=== PATIENT | male | born 1980 | race Caucasian/White ===

== ENCOUNTER 2020-07-20 14:54 | Emergency (ER) | payer SELFPAY ==
[~2020-07-20] VITALS: Ht 177.8 cm; Wt 82.9 kg
[2020-07-20 14:55] VITALS: BP 139/74
[2020-07-20 16:07] LABS: BACTERIA,URINE 0 /HPF (0-FEW); BILIRUBIN,URINE NEG (NEG); CLARITY,URINE CLEAR; COLOR,URINE AMBER; GLUCOSE,URINE NEG (NEG); NITRITE,URINE NEG (NEG); SQUAMOUS EPITHELIAL CELL,UR FEW /LPF; UROBILINOGEN,URINE 0.2 mg/dL (0.2 mg/dL); WBC,URINE OCC /HPF (0-4)
--- NOTE | 2020-07-20 16:19 | RAD ---
EXAM: Abdomen and pelvis CT without intravenous contrast. HISTORY: Flank pain. TECHNIQUE: Computed tomographic images of the abdomen and pelvis were obtained without contrast. Multiplanar reformatting was performed. *One or more of the following individualized dose reduction techniques were utilized for this examination: 1. Automated exposure control. 2. Adjustment of the mA and/or kV according to patient size. 3. Use of iterative reconstruction technique. COMPARISON: None. FINDINGS: Evaluation of the lower thorax is unremarkable. No hepatic lesion is seen. The gallbladder, pancreas, spleen and adrenal glands are unremarkable. There are nonobstructing bilateral renal stones, the largest of which measures 3 mm within the lower pole the right kidney. No obstructing renal stone is seen. No solid or cystic renal lesion is seen on this noncontrast exam. There is no appendicitis. There is no bowel obstruction. There is distal colonic diverticulosis. There is no diverticulitis. There is no lymphadenopathy. The aorta is normal in caliber. There is multilevel degenerative change involving the lumbar spine. This includes a broad-based posterior central disc protrusion superimposed on a disc bulge and endplate osteophytosis L2-L3. This results in moderate central canal stenosis. There are lesser degrees of central canal stenosis at the remainder of the lumbar levels. There is foraminal stenosis at multiple levels. IMPRESSION: 1. Bilateral nephrolithiasis. There is no evidence of hydronephrosis. 2. Few distal colonic diverticula. There is no diverticulitis. 3. Multilevel degenerative change involving the lumbar spine. Electronically signed by: Anyi Bustos MD (07/20/2020 4:16 PM) [facility], [place]
--- NOTE | 2020-07-20 16:31 | PHYS DOC ---
Past History Past Medical History: Kidney Stones Past Surgical History: No Surgical History Alcohol Use: Occasionally General Adult EDM: Chief Complaint: FLANK PAIN HPI: HPI: 40-year-old male presents with intermittent left flank pain for the last 2 weeks. He has had a dull ache most of the time with periods of sudden sharp intense pain. He had several of those episodes last night. He decided he should come in for evaluation. The patient just moved here from [place]. He is working on getting his insurance changed and does not currently have a primary physician. Patient has no history of kidney stones. He has had episodes like this in the past several years ago that eventually this went away. Patient denies fever or chills. He has had no real change in his urine habits. Review of Systems: Review of Systems: Constitutional: Denies fever or chills Eyes: Denies change in visual acuity HENT: Denies nasal congestion or sore throat Respiratory: Denies cough or shortness of breath Cardiovascular: Denies chest pain or edema GI: Denies abdominal pain, nausea, vomiting, bloody stools or diarrhea : Denies dysuria Musculoskeletal: Left flank pain Integument: Denies rash Neurologic: Denies headache, focal weakness or sensory changes Endocrine: Denies polyuria or polydipsia Lymphatic: Denies swollen glands Psychiatric: Denies depression or anxiety Heart Score: Risk Factors: Risk Factors: DM, Current or recent (<one month) smoker, HTN, HLP, family history of CAD, obesity. Risk Scores: Score 0 - 3: 2.5% MACE over next 6 weeks - Discharge Home Score 4 - 6: 20.3% MACE over next 6 weeks - Admit for Clinical Observation Score 7 - 10: 72.7% MACE over next 6 weeks - Early Invasive Strategies Allergies: Allergies: Allergies Coded Allergies Type Severity Reaction Last Updated Verified No Known Drug Allergies 07/20/20 No Physical Exam: PE: Constitutional: Well developed, well nourished, no acute distress, non-toxic appearance. [] HENT: Normocephalic, atraumatic, bilateral external ears normal, oropharynx moist, no oral exudates, nose normal. [] Eyes: PERRLA, EOMI, conjunctiva normal, no discharge. [] Neck: Normal range of motion, no tenderness, supple, no stridor. [] Cardiovascular: Heart rate regular rhythm, no murmur [] Lungs & Thorax: Bilateral breath sounds clear to auscultation [] Abdomen: Bowel sounds normal, soft, no tenderness, no masses, no pulsatile masses. [] Skin: Warm, dry, no erythema, no rash. [] Back: No tenderness, no CVA tenderness. [] Extremities: No tenderness, no cyanosis, no clubbing, ROM intact, no edema. [] Neurologic: Alert and oriented X 3, normal motor function, normal sensory function, no focal deficits noted. [] Psychologic: Affect normal, judgement normal, mood normal. [] Current Patient Data: Labs: Laboratory Tests Test 07/20/20 15:05 Urine Collection Type Unknown Urine Color Jennifer Urine Clarity Clear Urine pH 6.0 Urine Specific [place] 1.025 Urine Protein Neg (NEG-TRACE) Urine Glucose (UA) Neg mg/dL (NEG) Urine Ketones (Stick) Trace mg/dL (NEG) Urine Blood Small (NEG) Urine Nitrite Neg (NEG) Urine Bilirubin Neg (NEG) Urine Urobilinogen Dipstick 0.2 mg/dL (0.2 mg/dL) Urine Leukocyte Esterase Neg (NEG) Urine RBC 11-20 /HPF (0-2) Urine WBC Occ /HPF (0-4) Urine Squamous Epithelial Cells Few /LPF Urine Bacteria 0 /HPF (0-FEW) Vital Signs: Vital Signs Date Time Temp Pulse Resp B/P (MAP) Pulse Ox O2 Delivery O2 Flow Rate FiO2 07/20/20 14:55 98.5 70 20 139/74 (95) 97 07/20/20 14:54 Room Air EKG: EKG: [] Radiology/Procedures: Radiology/Procedures: [] Impressions: EXAM: Abdomen and pelvis CT without intravenous contrast. HISTORY: Flank pain. TECHNIQUE: Computed tomographic images of the abdomen and pelvis were obtained without contrast. Multiplanar reformatting was performed. *One or more of the following individualized dose reduction techniques were utilized for this examination: 1. Automated exposure control. 2. Adjustment of the mA and/or kV according to patient size. 3. Use of iterative reconstruction technique. COMPARISON: None. FINDINGS: Evaluation of the lower thorax is unremarkable. No hepatic lesion is seen. The gallbladder, pancreas, spleen and adrenal glands are unremarkable. There are nonobstructing bilateral renal stones, the largest of which measures 3 mm within the lower pole the right kidney. No obstructing renal stone is seen. No solid or cystic renal lesion is seen on this noncontrast exam. There is no appendicitis. There is no bowel obstruction. There is distal colonic diverticulosis. There is no diverticulitis. There is no lymphadenopathy. The aorta is normal in caliber. There is multilevel degenerative change involving the lumbar spine. This includes a broad-based posterior central disc protrusion superimposed on a disc bulge and endplate osteophytosis L2-L3. This results in moderate central canal stenosis. There are lesser degrees of central canal stenosis at the remainder of the lumbar levels. There is foraminal stenosis at multiple levels. IMPRESSION: 1. Bilateral nephrolithiasis. There is no evidence of hydronephrosis. 2. Few distal colonic diverticula. There is no diverticulitis. 3. Multilevel degenerative change involving the lumbar spine. Electronically signed by: Anyi Bustos MD (07/20/2020 4:16 PM) [facility] DICTATED AND SIGNED BY: ANYI BUSTOS MD DATE: 07/20/201615 CC: NATHANAEL FONSECA DO; PCP,NO ~ Course & Med Decision Making: Course & Med Decision Making Pertinent Labs and Imaging studies reviewed. (See chart for details) The patient's urinalysis is negative for infection. It is positive for blood. Based on his history, it he may have recently passed a stone. CT does not show an obstructing stone or hydronephrosis. He does have stones in his kidneys bilaterally. See official read for more details. I have advised the patient to see how things go the next couple of days. It appears as he may have passed the stone. If his symptoms do not improve, he will follow-up. He is stable for discharge at this time. [] Dragon Disclaimer: Dragon Disclaimer: This electronic medical record was generated, in whole or in part, using a voice recognition dictation system. Departure Departure: Impression: Primary Impression: Left flank pain Disposition: 01 HOME/RESIDENCE PRIOR TO ADM Condition: STABLE Referrals: [facility] (PCP) Patient Instructions: Kidney Stones, [id number] Justification of Admission: Justification of Admission: Justification of Admission Dx: N/A NATHANAEL FONSECA DO Jul 20, 2020 16:31
== END 2020-07-20 16:50 | disposition home or self-care (01) ==
LOC: ER 14:54
DX: R10.9 Unspecified abdominal pain (principal); Z87.442 Personal history of urinary calculi
CPT/HCPCS: 74176; 81001; 99284-25